=== PATIENT | male | born 1985 | race Caucasian/White ===

== ENCOUNTER 2018-04-03 14:26 | Emergency (ER) | payer OTHER ==
[~2018-04-03] VITALS: Ht 188 cm; Wt 97.5 kg
[2018-04-03] MEDS ORDERED: ERYTHROMYCIN E3.5 G2 OPHTHALMIC (15:32)
[2018-04-03] MEDS ORDERED: CYCLOGYL2 M1 OPHTHALMIC (15:35)
[2018-04-03] MEDS ORDERED: HYDROCODON-ACE1 EAC7 PO (15:40)
[2018-04-03 15:51] VITALS: BP 125/85
== END 2018-04-03 15:53 | disposition home or self-care (01) ==
LOC: M.ERS 14:26
DX: T15.01XA Foreign body in cornea, right eye, initial encounter (principal); W45.8XXA Other foreign body or object entering through skin, initial encounter; Y92.89 Other specified places as the place of occurrence of the external cause; Y93.89 Activity, other specified; Y99.8 Other external cause status

== ENCOUNTER 2018-04-04 16:25 | Emergency (ER) | payer OTHER ==
[~2018-04-04] VITALS: Ht 188 cm; Wt 97.5 kg
[~2018-04-04 16:25] MED LIST: CYCLOGYL2 M1 OPHTHALMIC; ERYTHROMYCIN E3.5 G2 OPHTHALMIC; HYDROCODON-ACE1 EAC7 PO
[2018-04-04 18:02] VITALS: BP 139/61
== END 2018-04-04 18:03 | disposition home or self-care (01) ==
LOC: M.ERS 16:25
DX: T15.91XA Foreign body on external eye, part unspecified, right eye, initial encounter (principal); X58.XXXA Exposure to other specified factors, initial encounter; Y93.89 Activity, other specified; Y92.89 Other specified places as the place of occurrence of the external cause; Y99.8 Other external cause status